=== PATIENT | female | born 1970 | race Caucasian/White ===

== ENCOUNTER 2017-09-27 07:49 | Day surgery (SDC) | payer BC ==
[~2017-09-27 07:49] MED LIST: Lidocaine 1%/Sod Bicarbonate in NS 8.4% 1 ML Syringe IV PRN; Sodium Chloride 0.9% 10 ML Syringe FLUSH PRN
[2017-09-27] MEDS: Lactated Ringers 1,000 ML IV SCH ×2 (08:25→13:07)
[2017-09-27] MEDS ORDERED: GENTAMICIN IV ONE ×2 (09:00)
[2017-09-27] MEDS ORDERED: WATER IV ONE ×2 (09:00)
[2017-09-27] MEDS ORDERED: DEXTROSE 5% IV ONE ×2 (09:00)
[2017-09-27] MEDS ORDERED: Clindamycin Phosphate 900 MG in Dextrose 5% in Water 100 ML IV ONE ×2 (09:00)
--- NOTE | 2017-09-27 09:03 | PCM.PREANE ---
Preanesthetic Assessment - Anesthesia/Transfusion/Family Hx Anesthesia History: Prior Anesthesia Reaction Type of Anesthesia Reaction: Excessive Nausea/Vomiting, Excessive Itching Family History of Anesthesia Reaction: No - Review of Systems General: No Symptoms Pulmonary: No Symptoms Cardiovascular: No Symptoms Gastrointestinal: No Symptoms Neurological: No Symptoms Other: Reports: Thyroid Problems (Hypothyroidism), Depression - Physical Assessment NPO Status Date: 09/26/17 NPO Status Time: 21:00 Pulse: 53 O2 Sat by Pulse Oximetry: 94 Respiratory Rate: 20 Blood Pressure: 101/66 Temperature: 37.1 C Weight: 69 kg ASA Class: 2 Mental Status: Alert & Oriented x3 Dentition: Reports: Implants (Front 2 incisors ) Thyro-Mental Finger Breadths: 2 Mouth Opening Finger Breadths: 3 ROM/Head Extension: Full Lungs: Clear to Auscultation, Normal Respiratory Effort Cardiovascular: Regular Rate, Regular Rhythm - Allergies Allergies/Adverse Reactions: Allergies Allergy/AdvReac Type Severity Reaction Status Date / Time cephalexin Allergy Rash Verified 09/27/17 09:04 Penicillins Allergy Cannot Verified 09/27/17 09:04 Remember Sulfa (Sulfonamide Allergy Cannot Verified 09/27/17 09:04 Antibiotics) Remember - Acknowledgements Anesthesia Type Planned: General Anesthesia Pt an Appropriate Candidate for the Planned Anesthesia: Yes Alternatives and Risks of Anesthesia Discussed w Pt/Guardian: Yes Pt/Guardian Understands and Agrees with Anesthesia Plan: Yes PreAnesthesia Questionnaire HEENT History: Reports: Impaired Vision, Other (See Below) Other HEENT History: reading glasses Cardiovascular History: Reports: None Respiratory History: Reports: None Gastrointestinal History: Reports: None DRAPERY HEAD FORMER History: Reports: Endometriosis, Other (See Below) Other OB/BYN History: , ovarian cyst, exploratory laparscopy Musculoskeletal History: Reports: None Neurological History: Reports: None Psychiatric History: Reports: None Endocrine/Metabolic History: Reports: Hypothyroidism Hematologic History: Reports: None Immunologic History: Reports: None Oncologic (Cancer) History: Reports: None Dermatologic History: Reports: None - Past Surgical History Head Surgeries/Procedures: Reports: None Cardiovascular Surgical History: Reports: None Respiratory Surgical History: Reports: None GI Surgical History: Reports: EGD Female Surgical History: Reports: Hysterectomy, Oophorectomy Endocrine Surgical History: Reports: None Neurological Surgical History: Reports: None Musculoskeletal Surgical History: Reports: None Oncologic Surgical History: Reports: None Dermatological Surgical History: Reports: None - SUBSTANCE USE Smoking Status *Q: Never Smoker Recreational Drug Use History: No - HOME MEDS Home Medications: Home Meds Albuterol Sulfate [Ventolin Hfa] 1 - 2 puff INH Q4H PRN 09/26/17 [History] Citalopram Hydrobromide [Celexa] 40 mg PO DAILY 09/26/17 [History] Levothyroxine [Synthroid] 100 mcg PO DAILY 09/26/17 [History] Montelukast Sodium [Singulair] 10 mg PO DAILY 09/26/17 [History] - CURRENT (IN HOUSE) MEDS Current Meds: Current Medications Lactated Ringer's (Ringers, Lactated) 1,000 mls @ 125 mls/hr IV ASDIRECTED LESLY Stop: 09/27/17 23:00 Clindamycin Phosphate 900 mg/ (Sodium Chloride) 106 mls @ 100 mls/hr IV ONETIME ONE Stop: 09/27/17 09:50 Gentamicin Sulfate 345 mg/ (Sodium Chloride) 108.625 mls @ 200 mls/hr IV ONETIME ONE Stop: 09/27/17 09:17 Lidocaine/Sodium Bicarbonate (Buffered Lidocaine 1% In Ns 8.4%) 0.25 ml IV ONETIME PRN PRN Reason: Prior to IV Start Stop: 09/27/17 18:00 Sodium Chloride (Saline Flush) 10 ml FLUSH ASDIRECTED PRN PRN Reason: Keep Vein Open Stop: 09/27/17 18:00
[2017-09-27] MEDS ORDERED: Scopolamine 1 MG Transdermal Patch TRDERM PRN (09:04)
[2017-09-27] MEDS ORDERED: Rocuronium 50 MG/5 ML Vial ONE (09:24)
[2017-09-27] MEDS ORDERED: Ondansetron 4 MG/2 ML SDV ONE (09:24)
[2017-09-27] MEDS ORDERED: Lactated Ringers 1,000 ML ONE (09:24)
[2017-09-27] MEDS ORDERED: fentaNYL 250 MCG/5 ML SDV ONE (09:25)
[2017-09-27] MEDS ORDERED: Midazolam 1 MG/ML 2 ML SDV ONE (09:25)
[2017-09-27] MEDS ORDERED: Lidocaine 1% 4 ML ONE (09:25)
[2017-09-27] MEDS ORDERED: Propofol 200 MG/20 ML SDV ONE ×2 (09:25→11:16)
[2017-09-27] MEDS ORDERED: Ketorolac 30 MG/ML SDV ONE (09:26)
[2017-09-27] MEDS ORDERED: Dexamethasone 4 MG/ML SDV ONE (09:26)
[2017-09-27] MEDS ORDERED: Bupivacaine 0.5% 30 ML SDV ONE (09:42)
[2017-09-27] MEDS ORDERED: fentaNYL 100 MCG/2 ML SDV IVPUSH PRN (10:52)
[2017-09-27] MEDS ORDERED: Haloperidol Lactate 5 MG/ML SDV IVPUSH PRN (10:52)
[2017-09-27] MEDS ORDERED: diphenhydrAMINE 50 MG/ML SDV ONE (11:06)
[2017-09-27] MEDS ORDERED: Neostigmine Methylsulfate 1 MG/ML 5 ML Syringe ONE (11:29)
[2017-09-27] MEDS ORDERED: Ondansetron 4 MG/2 ML SDV IVPUSH PRN (11:32)
[2017-09-27] MEDS ORDERED: Acetaminophen/oxyCODONE 325-5 MG Tab PO PRN (11:32)
--- NOTE | 2017-09-27 11:38 | PCM.POSTAN ---
POST ANESTHESIA ASSESSMENT - MENTAL STATUS Mental Status: Somnolent - VITAL SIGNS Pulse Rate: 76 SaO2: 100 Resp Rate: 13 Blood Pressure: 97/69 Temperature: 36.6 C - RESPIRATORY Respiratory Status: Respiratory Rate WNL, Airway Patent, O2 Saturation Stable, Supplemental Oxygen - CARDIOVASCULAR CV Status: Pulse Rate WNL, Blood Pressure Stable - GASTROINTESTINAL GI Status: No Symptoms - PAIN Pain Score: 0 - POST OP HYDRATION Hydration Status: Adequate & Stable
--- NOTE | 2017-09-27 11:41 | PCM.OPNOTE ---
- General Post-Op/Procedure Note Date of Surgery/Procedure: 09/27/17 Operative Procedure(s): Laparoscopy, right oophorectomy Findings: Right ovary was adhered to the pelvic sidewall. Cyst was present within the ovary. This appeared to be resolving at this time. No evidence of active endometriosis. Uterus, bilateral fallopian tubes and left ovary were surgically absent. Appendix appeared to be flaccid and noninflamed. Liver edge is unremarkable. Posterior cul-de-sac without significant adhesions. Pre Op Diagnosis: 1. Right ovarian cyst. 2. History of endometriosis Post-Op Diagnosis: 1. History of right ovarian cystresolving. 2. History endometriosis Anesthesia Technique: General ET Tube Other Anesthesia Type: Marcaine 0.5% local Primary Surgeon: Suhail Brady Secondary Surgeon: Nicholas Izquierdo Anesthesia Provider: Kristen Fernando Reason Pediatric Hospitalist Was Necessary: Retraction, assistance, quality of care, patient safety Role of Pediatric Hospitalist: Assistance, retraction Fluid Replacement, Intraop: 1,500 Output, Urine Amount: 100 EBL in mLs: 10 Drain/Tube Comments:: Indwelling bladder catheter during surgery only-removed at the end of case Complications: None Condition: Good Free Text/Narrative:: Surgery duration: 15 minutes Procedure: Patient is taken to the operating room and placed in supine position on the operating table. She received clindamycin and gentamicin IV for prophylactic antibiotics. She had sequential compression stockings in place for DVT prophylaxis. The patient had been consented for procedure. General endotracheal anesthesia was administered. Patient was frog legged and 40 catheter was placed. She was prepped and draped in usual fashion and a sponge stick was placed in the vagina as patient is status post hysterectomy. If umbilical, suprapubic and right lateral port sites were then developed using Marcaine 3-5 mL in each site. Verres needle was placed in this infraumbilical site and pneumoperitoneum was established using 3 L of CO2. The suprapubic and lateral port sites were developed under direct visualization. The pelvis was evaluated and findings as above. The right ovary is elevated off of the right pelvic sidewall. Moderate adhesions were noted. The area representing the infundibulopelvic ligament was then crossclamped using the Enseal vessel closure system the peritoneum was taken down below this in routine fashion. One area of bleeding was noted and 3 hemoclips were used for this because of its close proximity to the sidewall vasculature. The ovary was taken out in 2 pieces. Hemostasis was confirmed after this pelvis was irrigated, rinsed and aspirated. At this point pneumoperitoneum was reversed and no bleeding was encountered. Port sites removed and the pneumoperitoneum was reversed. The laparoscopic port sites were closed with single interrupted suture of 3-0 Monocryl and further approximated with Dermabond skin glue. Patient was returned to supine position and Morelos catheter was removed. Patient was awakened from general endotracheal anesthesia. She tolerated procedure well left the operating room in satisfactory condition.
--- NOTE | 2017-09-27 12:19 | PCM48HPAN ---
Post Anesthesia Note - EVALUATION WITHIN 48HRS OF ANESTHETIC Vital Signs in Normal Range: Yes Patient Participated in Evaluation: Yes Respiratory Function Stable: Yes Airway Patent: Yes Cardiovascular Function Stable: Yes Hydration Status Stable: Yes Pain Control Satisfactory: Yes Nausea and Vomiting Control Satisfactory: Yes Mental Status Recovered: Yes
== END 2017-09-27 14:15 | disposition home or self-care (01) ==
LOC: JD.SDS 07:49
PROVIDERS: ATTEND Obstetrics & Gynecology
DX: N83.201 Unspecified ovarian cyst, right side (principal); E03.9 Hypothyroidism, unspecified; J30.2 Other seasonal allergic rhinitis; Z87.42 Personal history of other diseases of the female genital tract; Z88.1 Allergy status to other antibiotic agents; Z90.710 Acquired absence of both cervix and uterus; Z90.722 Acquired absence of ovaries, bilateral; Z88.0 Allergy status to penicillin; Z88.2 Allergy status to sulfonamides; Z79.899 Other long term (current) drug therapy; Z98.890 Other specified postprocedural states
CPT/HCPCS: 36415; 58661; 81001; 85025; A9270; J1100; J1200; J1630; J1885; J2250; J2405; J2710; J3010; J7060; J7120; 00840; J2704